=== PATIENT | female | born 1950 | race Two or more races ===

== ENCOUNTER 2023-02-04 13:10 | Outpatient (CLI) | payer MEDICARE, BC ==
[2023-02-04] MEDS ORDERED: BACI/NEOM/POLY B OINT PKT 1 UDPKT PACKET ONE (13:19)
== END 2023-02-04 23:59 | disposition home or self-care (01) ==
LOC: EDBD 13:10 → WOU 13:10
PROVIDERS: ATTEND Surgery
DX: L85.3 Xerosis cutis (principal); L98.9 Disorder of the skin and subcutaneous tissue, unspecified; E11.9 Type 2 diabetes mellitus without complications; I10 Essential (primary) hypertension; F31.9 Bipolar disorder, unspecified
CPT/HCPCS: G0463